=== PATIENT | female | born 2000 | race Caucasian/White ===

== ENCOUNTER 2022-12-11 09:03 | Emergency (ER) | payer OTHER, SELFPAY ==
[2022-12-11 09:24] VITALS: BP 113/69; PULSE 66; RESP 18; TEMP 36.3; O2SAT 100
--- NOTE | 2022-12-11 09:56 | ED.SKABFB ---
HPI - Skin/Abscess/Foreign Bdy General Chief complaint: Skin/Abscess/Foreign Body Stated complaint: rash Source: patient and RN notes reviewed History of Present Illness HPI narrative: 22-year-old female presents to urgent care with complaints of an itchy rash x3 days. Patient states she believes she has poison william b/c her significant other has a rash as well and he sprays for poison william. Pt states she did develop her rash first though. Pt denies working outside or touching anything to explain the rash. Pt reports her lower pelvic region, inside is itching her badly. No rash to abdomen or genitals. Denies any vaginal discharge. Denies any fevers, chills, chest pain, SOB, or vomiting. Pt has been attempting to dry her rash up with rubbing alcohol. Related Data Allergies Allergy/AdvReac Type Severity Reaction Status Date / Time aspirin Allergy Mild Hives Verified 12/11/22 09:28 cephalexin Allergy Mild HIVES ON Verified 12/11/22 09:28 THIGHS Penicillins Allergy Mild Unknown Verified 12/11/22 09:28 [email or web address] [From Zofran] Allergy Vomiting Verified 12/11/22 09:28 Review of Systems Review of Systems: CONSTITUTIONAL: Denies fever, chills, or sweats. EYES: Denies visual changes, redness, or discharge. ENT: Denies otalgia and sore throat CARDIOVASCULAR: Denies chest pain, palpitations, or edema. RESPIRATORY: Denies cough or dyspnea. GASTROINTESTINAL: Denies abdominal pain, nausea, vomiting, or diarrhea. GENITOURINARY: Denies dysuria or hematuria. SKIN: itchy rash MUSCULOSKELETAL: Denies back pain, joint pain, or myalgia. NEUROLOGIC: Denies headache, numbness, or weakness. Pertinent positives per HPI. PMFSH Comments At the time of my signature, I reviewed and agree with the nursing past medical, surgical, social, and family history. There is no relevant family history pertinent to the patient complaint. Exam Narrative: GENERAL: This is a well-nourished, well-developed patient, in no apparent distress. HEAD: normocephalic, atraumatic. EYES: Sclera clear/white. Vision is grossly intact. EARS: External ears normal, auditory canals clear and without drainage. Hearing grossly intact. NOSE: External nose normal with no obvious nasal discharge, nares without redness, no rhinorrhea. THROAT: Mucous membranes moist, posterior pharynx clear. NECK: Neck supple, non-tender without lymphadenopathy, masses or thyromegaly. CARDIOVASCULAR: Regular rate and rhythm without murmurs, gallops, or rubs. RESPIRATORY: Clear to auscultation. Breath sounds equal bilaterally. No wheezes, rales, or rhonchi. GASTROINTESTINAL: Abdomen soft, non-tender, nondistended. Bowel sounds are active. No hepato-splenomegaly, or palpable masses. No guarding. SKIN: erythremic, slightly raised, rash to chest; scattered spots to bilateral inner thighs and bilateral forearms. NEURO: awake, alert, and oriented to person, place and time. There were no obvious focal neurologic abnormalities. EXTREMITIES: No clubbing, cyanosis, or edema. No joint tenderness, effusion, or edema noted. Course Course Level of Care: Express Care Visit Vital Signs Vital signs: Vital Signs Temperature 97.3 F L 12/11/22 09:24 Pulse Rate 66 12/11/22 09:24 Respiratory Rate 18 12/11/22 09:24 Blood Pressure 113/69 12/11/22 09:24 Pulse Oximetry 100 12/11/22 09:24 Oxygen Delivery Room Air 12/11/22 09:24 Temperature 97.3 F L 12/11/22 09:24 Pulse Rate 66 12/11/22 09:24 Respiratory Rate 18 12/11/22 09:24 Blood Pressure 113/69 12/11/22 09:24 Pulse Oximetry 100 12/11/22 09:24 Oxygen Delivery Room Air 12/11/22 09:24 Reviewed MDM - Skin/Abscess/Foreign Bdy MDM Narrative Medical decision making narrative: Prevention is always better than treatment. Learn to identify poison william, oak, and sumac and avoid it. Wear long sleeves, long pants, shoes, and socks. If you touched the plant, try to keep your hands away from your eyes, mouth, and face
[2022-12-11] MEDS: methylPREDNISolone SOD SUCC 125 MG VIAL IM (10:10)
== END 2022-12-11 10:13 | disposition home or self-care (01) ==
PROVIDERS: Emergency Provider Nurse Practitioner Family
DX: L25.9 Unspecified contact dermatitis, unspecified cause (principal)
CPT/HCPCS: 96372; 99213; G0463; J2930